=== PATIENT | male | born 1975 | race Hispanic/Latino ===

== ENCOUNTER 2017-06-19 00:50 | Emergency (ER) | payer MEDICAID ==
[2017-06-19 00:54] VITALS: BP 129/86; PULSE 70; RESP 18; TEMP 98; O2SAT 97; BMI 25.1
--- NOTE | 2017-06-19 00:58 | ED PDOC ---
Arrival/HPI - General Time Seen by Provider: 06/19/17 00:53 Historian: Patient - History of Present Illness Narrative History of Present Illness (Text): 06/19/17 00:58 Chepe Davis is a 42 year old male, whose past medical history includes IVDA and endocarditis, who presents to the Emergency department complaining of chest pain. Patient states he has began experiencing right-sided chest pain with associated shortness of breath. Patient notes he [place] 3 [place] [facility] [place] Patient denies any fever, chills, nausea, vomiting, diarrhea, urinary symptoms, back pain, neck pain, headache, dizziness , or any other complaints. Symptom Onset: Gradual Symptom Course: Unchanged Activities at Onset: Light Context: Home Past Medical History - Provider Review Nursing Documentation Reviewed: Yes Family/Social History - Physician Review Nursing Documentation Reviewed: Yes Family/Social History: Unknown Family HX Allergies/Home Meds Allergies/Adverse Reactions: Allergies No Known Allergies Allergy (Verified 06/19/17 00:54) Home Medications: Home Meds Medication Instructions Recorded Confirmed Amoxicillin [Amoxil 250 mg Cap] 250 mg PO DAILY 06/19/17 06/19/17 Cholecalciferol [Vitamin D 1000 IU] 0 unit PO DAILY 06/19/17 06/19/17 Folic Acid [FA-8] 0 mcg PO DAILY 06/19/17 06/19/17 Review of Systems - Physician Review All systems were reviewed & negative as marked: Yes - Review of Systems Constitutional: Normal. absent: Fevers Eyes: Normal ENT: Normal Respiratory: SOB. absent: Cough Cardiovascular: Chest Pain Gastrointestinal: Normal. absent: Abdominal Pain, Diarrhea, Nausea, Vomiting Genitourinary Male: Normal. absent: Dysuria, Frequency, Hematuria, Urinary Output Changes Musculoskeletal: Normal. absent: Back Pain, Neck Pain Skin: Normal. absent: Rash Neurological: Normal. absent: Headache, Dizziness Endocrine: Normal Hemo/Lymphatic: Normal Psychiatric: Normal Physical Exam Vital Signs Reviewed: Yes Vital Signs Temp Pulse Resp BP Pulse Ox 06/19/17 00:57 98.0 F 70 18 129/86 97 06/19/17 00:53 98.0 F 70 18 129/86 97 Temperature: Afebrile Blood Pressure: Normal Pulse: Regular Respiratory Rate: Normal Appearance: Positive for: Well-Appearing, Non-Toxic, Comfortable Pain Distress: None Mental Status: Positive for: Alert and Oriented X 3 - Systems Exam Head: Present: Atraumatic, Normocephalic Pupils: Present: PERRL Extroacular Muscles: Present: EOMI Conjunctiva: Present: Normal Mouth: Present: Moist Mucous Membranes Neck: Present: Normal Range of Motion Respiratory/Chest: Present: Clear to Auscultation, Good Air Exchange. No: Respiratory Distress, Accessory Muscle Use Cardiovascular: Present: Regular Rate and Rhythm, Normal S1, S2. No: Murmurs Abdomen: Present: Normal Bowel Sounds. No: Tenderness, Distention, Peritoneal Signs Back: Present: Normal Inspection Upper Extremity: Present: Normal Inspection. No: Cyanosis, Edema Lower Extremity: Present: Normal Inspection. No: Edema Neurological: Present: GCS=15, CN II-XII Intact, Speech Normal Skin: Present: Warm, Dry, Normal Color. No: Rashes Psychiatric: Present: Alert, Oriented x 3, Normal Insight, Normal Concentration Medical Decision Making ED Course and Treatment: 06/19/17 00:58 Impression: 42 year old male complaining of right-sided chest pain and shortness of breath tonight. Plan: -- EKG -- CXR -- Labs, BNP, cardiac enzymes -- Reassess and disposition Progress Notes: 06/19/17 01:15 Informed by staff, pt left Emergency room prior to complete of treatment/ evaluation. - Scribe Statement The provider has reviewed the documentation as recorded by the Scribe Bethany Erwin All medical record entries made by the Scribe were at my direction and personally dictated by me. I have reviewed the chart and agree that the record accurately reflects my personal performance of the history, physical exam, medical decision making, and the department course for this patient. I have also personally directed, reviewed, and agree with the discharge instructions and disposition. Disposition/Present on Arrival - Present on Arrival Any Indicators Present on Arrival: No - Disposition Have Diagnosis and Disposition been Completed?: Yes Diagnosis: Chest pain Disposition: LEFT W/O TREATMENT - ER ONLY Disposition Time: 01:15 Patient Problems: Current Active Problems Problem Status Onset Chest pain Acute Condition: UNKNOWN Discharge Instructions (ExitCare): Chest Pain (ED) Referrals: Max Almendarez MD [Primary Care Provider] - Follow up with primary
[2017-06-19] MEDS ORDERED: Albuterol-Ipratrop 3 mg / 0.5 (3 ml) UD ONE (07:29)
== END 2017-06-19 03:49 | disposition left against medical advice (07) ==
LOC: ED 00:50
DX: R07.9 Chest pain, unspecified (principal)

== ENCOUNTER 2017-07-01 19:49 | Observation (INO) | payer MEDICAID ==
[2017-07-01 19:49] VITALS: BMI 25.1
[2017-07-01 20:31] LABS: CALCIUM 10.1 mg/dL (8.4-10.5); GFR AFRICAN-AMERICAN > 60; GLUCOSE,RANDOM 95 mg/dL (70-110); TOTAL PROTEIN 9.2 g/dL (5.8-8.3)
[2017-07-01 20:42] LABS: TROPONIN I < 0.01 ng/mL
[2017-07-01 20:50] LABS: ALB/GLOB RATIO 0.9 (1.1-1.8); ALKALINE PHOSPHATASE 70 U/L (38-126); ALT/SGPT 69 U/L (7-56); AST/SGOT 64 U/L (17-59); BLOOD UREA NITROGEN 13 mg/dL (7-21); CARBON DIOXIDE 29 mmol/L (21-33); CHLORIDE 106 mmol/L (98-107); MAGNESIUM 1.8 mg/dL (1.7-2.2); POTASSIUM 4.1 mmol/L (3.6-5.0); SODIUM 141 mmol/L (132-148)
[2017-07-01 20:52] LABS: BASO # 0.05 K/mm3 (0.0-2.0); BASO % 0.5 % (0.0-3.0); EOS # 0.1 (0.0-0.7); EOS % 0.6 % (1.5-5.0); GRAN # 5.67 (1.4-6.5); GRAN % 60.3 % (50.0-68.0); LYMPH % 31.7 % (22.0-35.0); MEAN CELL VOLUME 86.3 fl (80.0-105.0); MEAN CORPUSCULAR HEMOGLOBIN 28.7 pg (25.0-35.0); MEAN CORPUSCULAR HGB CONC 33.3 g/dl (31.0-37.0); MEAN PLATELET VOLUME 8.7 fl (7.0-11.0); MONO # 0.7 (0.1-0.6); MONO % 6.9 % (1.0-6.0); RED CELL DISTRIBUTION WIDTH 14.1 % (11.5-14.5); WHITE BLOOD COUNT 9.4 10^3/ul (4.5-11.0)
[2017-07-01 20:52] LABS: PH,URINE 7.5 (4.7-8.0); URINE BILIRUBIN NEGATIVE (NEGATIVE); URINE BLOOD NEGATIVE (NEGATIVE); URINE GLUCOSE (UA) NEGATIVE (NEGATIVE); URINE KETONE NEGATIVE (NEGATIVE); URINE LEUKOCYTE ESTERASE NEGATIVE Leu/uL (NEGATIVE); URINE PROTEIN TRACE mg/dL (<30 mg/dL); URINE UROBILINOGEN 0.2 E.U./dL (<1 E.U./dL)
[2017-07-01 20:54] LABS: URINE APPEARANCE CLEAR (CLEAR); URINE COLOR YELLOW (YELLOW)
[2017-07-01 20:58] LABS: INR 1.1 (0.93-1.08); PARTIAL THROMBOPLASTIN TIME 26.5 Seconds (25.1-36.5)
[2017-07-01] MEDS ORDERED: Lactated Ringer's 1,000 ML IV SCH (21:15)
--- NOTE | 2017-07-01 21:16 | ED PDOC ---
Arrival/HPI - General Chief Complaint: Shortness Of Breath Time Seen by Provider: 07/01/17 20:07 Historian: Patient - History of Present Illness Narrative History of Present Illness (Text): you admitted to intravenous drug use with heroin and endocarditis and were treated in the ED today for difficulty breathing, generalized chest pain with right upper back pain with dry cough otherwise without any fall/injury/neck pain /fever/nausea/vomiting/headache/dizziness/abdomen pain/numbness/tingling/loss of limb function/pain with urination/travel/prior blood clots/prior cancer history/thoughts to harm yourself or others or hallucinations. 07/01/17 21:13 07/01/17 21:16 Time/Duration: 1 week Past Medical History - Provider Review Nursing Documentation Reviewed: Yes - Travel History Have you recently traveled outside [place] w/in the past 3 mons?: No - Cardiac Hx Cardiac Disorders: Yes Other/Comment: endocardities - Pulmonary Hx Respiratory Disorders: No - Neurological Hx Neurological Disorder: No - HEENT Hx HEENT Disorder: No - Renal Hx Renal Disorder: No - Endocrine/Metabolic Hx Endocrine Disorders: No - Hematological/Oncological Hx Blood Disorders: No - Integumentary Hx Dermatological Disorder: No - Musculoskeletal/Rheumatological Hx Musculoskeletal Disorders: No - Gastrointestinal Hx Gastrointestinal Disorders: No - Genitourinary/Gynecological Hx Genitourinary Disorders: No - Psychiatric Hx Psychophysiologic Disorder: No Hx Substance Use: Yes (heroin) Family/Social History - Physician Review Nursing Documentation Reviewed: Yes Family/Social History: No Known Family HX Smoking Status: Current Some Days Smoker Hx Alcohol Use: Yes Hx Substance Use: Yes (heroin) Allergies/Home Meds Allergies/Adverse Reactions: Allergies No Known Allergies Allergy (Verified 06/19/17 00:54) Home Medications: Home Meds Medication Instructions Recorded Confirmed Amoxicillin [Amoxil 250 mg Cap] 250 mg PO DAILY 06/19/17 06/19/17 Cholecalciferol [Vitamin D 1000 IU] 0 unit PO DAILY 06/19/17 06/19/17 Folic Acid [FA-8] 0 mcg PO DAILY 06/19/17 06/19/17 Review of Systems - Review of Systems Constitutional: Normal Eyes: Normal ENT: Normal Respiratory: SOB Cardiovascular: Chest Pain Gastrointestinal: Normal Genitourinary Male: Normal Musculoskeletal: Back Pain Skin: Normal Neurological: Normal Endocrine: Normal Hemo/Lymphatic: Normal Psychiatric: Normal Physical Exam Vital Signs Reviewed: Yes Vital Signs Temp Pulse Resp BP Pulse Ox 07/01/17 21:40 98.3 F 68 17 145/79 98 07/01/17 20:00 18 98 07/01/17 19:56 98 F 81 18 145/79 100 Temperature: Afebrile Blood Pressure: Hypertensive Pulse: Regular Respiratory Rate: Normal Appearance: Positive for: Well-Appearing, Non-Toxic, Comfortable Pain Distress: None Mental Status: Positive for: Alert and Oriented X 3 - Systems Exam Head: Present: Atraumatic, Normocephalic Pupils: Present: PERRL Extroacular Muscles: Present: EOMI Conjunctiva: Present: Normal Ears: Present: Normal Mouth: Present: Moist Mucous Membranes Pharnyx: Present: Normal Nose (External): Present: Atraumatic Nose (Internal): Present: Normal Inspection Neck: Present: Normal Range of Motion Respiratory/Chest: Present: Clear to Auscultation, Good Air Exchange Cardiovascular: Present: Regular Rate and Rhythm Rectal: No: Occult Blood, Rectal Tenderness, Gross Blood, Melena, Hemorrhoids, Normal Rectal Tone, Fissures, Nodule/Mass/Lesions, Other Back: Present: Normal Inspection, Other (no spinal or paraspinal c-t-l spine and wo erythema/fluctuance/crepitus.) Upper Extremity: Present: Normal Inspection Lower Extremity: Present: Normal Inspection Neurological: Present: GCS=15, CN II-XII Intact, Speech Normal, Motor Func Grossly Intact Skin: Present: Warm, Normal Color Psychiatric: Present: Alert, Oriented x 3, Normal Insight, Normal Concentration. No: Normal Affect (denies suicidal/homicidal/hallucinations), Normal Mood, Anxious, Agitated, Depressed Mood, Suicidal Ideation, Homicidal Ideation, Delusional, Hallucinations, Intoxicated, Lethargic, Other Medical Decision Making ED Course and Treatment: 07/01/17 21:16 you admitted to intravenous drug use with heroin and endocarditis and were treated in the ED today for difficulty breathing, generalized chest pain with right upper back pain with dry cough otherwise without any fall/injury/neck pain /fever/nausea/vomiting/headache/dizziness/abdomen pain/numbness/tingling/loss of limb function/pain with urination/travel/prior blood clots/prior cancer history/thoughts to harm yourself or others or hallucinations. You were otherwise breathing easily, good strength/sensation, walking easily, clear lungs , no abdomen tenderness, no rashes or punctate hand lesions, no fever temp 98.1 , stable heart rate 81, stable breathing rate 18, excellent oxygen level 100% room air, elevated blood pressure 145/79 which we recommend repeat in 2-3 days primary care office to determine further treatment, trop negative, counselled to stop using drugs and will admit for chest pain rule out. after tox screen obtained pt admitted to cocaine use in the past 1-2 weeks. 07/01/17 21:19 07/01/17 23:21 07/01/17 23:55 d/w [facility] resident. will admit to dr. mott. for acs rule out. - Lab Interpretations Lab Results: 07/01/17 20:14 07/01/17 20:14 Lab Results 07/01/17 20:30: Urine Opiates Screen Positive H, Urine Methadone Screen Negative , Ur Barbiturates Screen Negative, Ur Phencyclidine Scrn Negative, Ur Amphetamines Screen Negative, U Benzodiazepines Scrn Negative, U Oth Cocaine Metabols Positive H, U Cannabinoids Screen Negative 07/01/17 20:30: Urine Color Yellow, Urine Appearance Clear, Urine pH 7.5, Ur Specific [place] 1.015, Urine Protein Trace H, Urine Glucose (UA) Negative, Urine Ketones Negative, Urine Blood Negative, Urine Nitrate Negative, Urine Bilirubin Negative, Urine Urobilinogen 0.2, Ur Leukocyte Esterase Negative, Urine RBC 1 - 3, Urine WBC 0 - 2, Ur Epithelial Cells 0 - 2 07/01/17 20:14: Sodium 141, Potassium 4.1, Chloride 106, Carbon Dioxide 29, Anion Gap 11, BUN 13, Creatinine 0.8, Est GFR ( Amer) > 60, Est GFR (Non- Af Amer) > 60, Random Glucose 95, Calcium 10.1, Magnesium 1.8, Total Bilirubin 1.0, AST 64 H, ALT 69 H, Alkaline Phosphatase 70, Lactate Dehydrogenase 528, Total Creatine Kinase 53, Troponin I < 0.01, NT-Pro-B Natriuret Pep 81.1, Total Protein 9.2 H, Albumin 4.4, Globulin 4.8, Albumin/Globulin Ratio 0.9 L 07/01/17 20:14: PT 12.0, INR 1.10 H, APTT 26.5, D-Dimer, Quantitative 462 H 07/01/17 20:14: WBC 9.4, RBC 5.33, Hgb 15.3, Hct 46.0, MCV 86.3, MCH 28.7, MCHC 33.3, RDW 14.1, Plt Count 452 H, MPV 8.7, Gran % 60.3, Lymph % (Auto) 31.7, [place] % (Auto) 6.9 H, Eos % (Auto) 0.6 L, Baso % (Auto) 0.5, Gran # 5.67, Lymph # 3.0, [place] # 0.7 H, Eos # 0.1, Baso # 0.05 I have reviewed the lab results: Yes - RAD Interpretation Narrative RAD Interpretations (Text): CT chest no pe. no consolidation. no effusion. +left lung nodule. 07/01/17 23:20 Radiology Orders: 07/01/17 21:11 ANGIO CHEST PE PROTOCOL [CT] Stat Mailing Clerk: Radiologist - EKG Interpretation Interpreted by ED Physician: Yes (NSR, flipped t waves avr, ) - Medication Orders Current Medication Orders: Lactated Ringer's (Lactated Ringer's) 1,000 mls @ 100 mls/hr IV .Q10H [facility] Last Admin: 07/01/17 21:22 Dose: 100 mls/hr eMAR Start Stop Document 07/01/17 21:22 IT (Rec: 07/01/17 21:22 IT [id number]) Intravenous Solution Start Date 07/01/17 Start Time 21:22 Discontinued Medications Aspirin (Aspirin) 325 mg PO STAT STA Stop: 07/01/17 20:12 Last Admin: 07/01/17 20:23 Dose: 325 mg Disposition/Present on Arrival - Present on Arrival Any Indicators Present on Arrival: No History of DVT/PE: Yes History of Uncontrolled Diabetes: Yes Urinary Catheter: Yes History of Decub. Ulcer: No History Surgical Site Infection Following: None - Disposition Have Diagnosis and Disposition been Completed?: Yes Diagnosis: Chest pain Disposition: HOSPITALIZED Disposition Time: 23:56 Patient Plan: Admission, Telemetry Condition: IMPROVED Discharge Instructions (ExitCare): Chest Pain (ED) Forms: [employer] ([employer])
[2017-07-01 21:17] LABS: URINE EPITHELIAL CELLS 0 - 2 /hpf (0-5); URINE WBC 0 - 2 /hpf (0-6)
[2017-07-01] MEDS ORDERED: Iodixanol 320 MG/ML 100 ML BOTTLE IV ONE (21:28)
--- NOTE | 2017-07-01 22:39 | CT ---
EXAM: CT Angiography Chest With Intravenous Contrast CLINICAL HISTORY: 42 years old, male; Pain and signs and symptoms; Shortness of breath; Chest pain; Right-sided chest pain; Additional info: 42yom, ivda, chest pain. Eval for pe. TECHNIQUE: Axial computed tomographic angiography images of the chest with intravenous contrast using pulmonary embolism protocol. All CT scans at this facility use one or more dose reduction techniques, viz.: automated exposure control; ma/kV adjustment per patient size (including targeted exams where dose is matched to indication; i.e. head); or iterative reconstruction technique. MIP reconstructed images were created and reviewed. Coronal and sagittal reformatted images were created and reviewed. CONTRAST: 100 mL of VISIPAQUE 320 administered intravenously. COMPARISON: No relevant prior studies available. FINDINGS: Limitations: Motion artifact - mild to moderate. Pulmonary arteries: No pulmonary embolism. Aorta: No aneurysm. No dissection. Lungs: Minimal peripheral atelectasis/scarring. No consolidation. 0.7 cm nodule vs focal scarring left upper lobe. Pleural space: No significant effusion. No pneumothorax. Heart: No cardiomegaly. No significant pericardial effusion. Bones/joints: No acute fracture. Soft tissues: Unremarkable. Lymph nodes: No pathologically enlarged lymph nodes. IMPRESSION: 1. No definite CT evidence of pulmonary embolism. 2. Pulmonary nodule. For low-risk patients recommend follow-up chest CT at 6-12 months. If unchanged consider an additional follow-up CT at 18-24 months. For high-risk patients (smoking history or other known risk factors) initial follow-up chest CT at 6-12 months and if unchanged, 18-24 months.No definite pulmonary embolism. 3. Incidental/non-acute findings are described above.
[2017-07-02] MEDS ORDERED: Multivitamin (MVI) 10 ML, Thiamine 100 MG, Folic Acid 1 MG in Sodium Chloride 0.9% 1,00... IV ONE (01:18)
--- NOTE | 2017-07-02 01:52 | CP.PCM.HP ---
<Yanna Mariee - Last Filed: 07/02/17 01:33> History of Present Illness - History of Present Illness History of Present Illness: Yanna Mariee DO PGY1 - Internal Medicine H&P CC: Chest discomfort and shortness of breath HPI: 42 yo M with PMH of polysubstance abuse, IVDU, hepatitis C, and endocarditis, [place] 2.[place] [facility] [place] [facility] complaining of chest discomfort and shortness of breath for the past 3 days. 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 He denies diaphoresis, nausea, palpitations. He does admit to some shortness of breath, worsened with activity. Patient also admits to frequent IVDU and polysubstance use including heroin, cocaine, and alcohol; last used both approximately 3 days ago, and last drank yesterday. 12 point ROS was obtained and was negative except as above PMH: Endocarditis 2.5 months ago, [place] [facility], hepatitis C PSH: Denies Soc: Smokes 1 PPD; Drinks 40oz beer daily; uses IV heroin and IV cocaine, last used 3 days ago FHx: Denies All: NKDA Present on Admission - Present on Admission Any Indicators Present on Admission: No Past Patient History - Past Social History Smoking Status: Current Some Days Smoker - CARDIAC Hx Cardiac Disorders: Yes Other/Comment: endocardities - PULMONARY Hx Respiratory Disorders: No - NEUROLOGICAL Hx Neurological Disorder: No - HEENT Hx HEENT Problems: No - RENAL Hx Chronic Kidney Disease: No - ENDOCRINE/METABOLIC Hx Endocrine Disorders: No - HEMATOLOGICAL/ONCOLOGICAL Hx Blood Disorders: No - INTEGUMENTARY Hx Dermatological Problems: No - MUSCULOSKELETAL/RHEUMATOLOGICAL Hx Falls: No - GASTROINTESTINAL Hx Gastrointestinal Disorders: No - GENITOURINARY/GYNECOLOGICAL Hx Genitourinary Disorders: No - PSYCHIATRIC Hx Psychophysiologic Disorder: No Hx Substance Use: No - SURGICAL HISTORY Hx Surgeries: No Meds Allergies/Adverse Reactions: Allergies Allergy/AdvReac Type Severity Reaction Status Date / Time No Known Allergies Allergy Verified 07/02/17 00:06 Physical Exam - Constitutional Appears: Non-toxic, No Acute Distress, Unkempt - Head Exam Head Exam: ATRAUMATIC, NORMOCEPHALIC - Eye Exam Eye Exam: EOMI, Normal appearance, PERRL. absent: Scleral icterus Pupil Exam: absent: Miosis, Mydriatic - ENT Exam ENT Exam: Mucous Membranes Moist - Neck Exam Neck exam: Positive for: Normal Inspection - Respiratory Exam Respiratory Exam: Clear to Auscultation Bilateral, NORMAL BREATHING PATTERN - Cardiovascular Exam Cardiovascular Exam: RRR, +S1, +S2, +S4. absent: Bradycardia, Tachycardia, JVD - GI/Abdominal Exam GI & Abdominal Exam: Normal Bowel Sounds, Soft. absent: Distended, Firm, Guarding, Organomegaly, Rebound, Rigid, Tenderness - Extremities Exam Extremities exam: Negative for: calf tenderness, pedal edema Additional comments: No splinter hemorrhages, janeway lesions, osler nodes, clubbing, cyanosis, or edema - Neurological Exam Neurological exam: Alert, CN II-XII Intact, Oriented x3 - Psychiatric Exam Psychiatric exam: Normal Affect, Normal Mood - Skin Skin Exam: Dry, Normal Color Additional comments: Multiple track dior Multiple excoriations on face and bilateral arms - Additional Findings Additional findings: Patient sitting comfortably in bed, eating pudding and a cookie, speaking calmly and in complete sentences Results - Vital Signs Recent Vital Signs: Last Vital Signs Temp 97.8 F 07/02/17 01:23 Pulse 72 07/02/17 01:23 Resp 17 07/02/17 01:23 BP 120/82 07/02/17 01:23 Pulse Ox 98 07/02/17 01:23 - Labs Result Diagrams: 07/01/17 20:14 07/01/17 20:14 Assessment & Plan - Assessment and Plan (Free Text) Assessment: 42 yo M with PMH of polysubstance abuse, IVDU, hepatitis C, and endocarditis, treated 2.5 months ago [place] [facility] complaining of chest discomfort and shortness of breath for the past 3 days Plan Chest discomfort, r/o ACS - Patient complaining mostly of right upper back pain, pleuritic and related to right arm activity, more likely musculoskeletal in nature, 2/2 to occupation - Patient also has history of cocaine abuse; may be 2/2 vasospasm 2/2 cocaine; avoid BB - Patient also has history of endocarditis 2/2 IVDU; echo ordered, as below - Initial troponin negative; initial EKG shows NSR, pending official read - Continue to trend troponins; repeat EKG in AM - Ordered ESR and CRP to rule in/out costochondritis and endocarditis/ pericarditis - Continue PRN O2 - Ordered Motrin PRN for pain - Cardiology consult requested, appreciate recs h/o Endocarditis - Patient was recently treated for endocarditis 2/2 IVDU [place] [facility]; continues to be an active IVDU - Currently afebrile with no leukocytosis; though presents complaining of chest discomfort and shortness of breath - No signs of septic emboli at this time; no janeway lesions, osler nodes, digital clubbing, petechial rash, subconjunctival hemorrhages, or hematuria - Blood cultures ordered to r/o bacteremia - Echo ordered to r/o vegitation/thrombus and wall motion abnormalities Alcohol abuse - Patient normally drinks 40oz beer daily, last drink yesterday - Ordered alcohol level - Does not appear to be actively withdrawing at this time - Start CIWA protocol - Start banana bag - Ordered PRN ativan for withdrawal symptoms - Seizure precautions h/o IVDU, polysubstance abuse - Patient last used IV heroin and IV cocaine 3 days ago - Ordered PRN ativan for withdrawal symptoms - Ordered PRN clonidine for tics, 2/2 cocaine withdrawal - Ordered HIV screening - Discussed abstinence at length - Ordered social work evaluation Transaminemia - Mild, hepatotoxic pattern - Most likely 2/2 to known history of hepatitis C - Acute hepatitis panel ordered - Continue to monitor GI Ppx: Protonix DVT Ppx: Heparin Patient seen, discussed, and reviewed with attending, Dr. Grace <Lesly GIBSON,Gerry - Last Filed: 07/02/17 14:15> Results - Vital Signs Recent Vital Signs: Last Vital Signs Temp 97.9 F 07/02/17 11:55 Pulse 75 07/02/17 14:00 Resp 18 07/02/17 11:55 BP 128/76 07/02/17 11:55 Pulse Ox 98 07/02/17 11:55 - Labs Result Diagrams: 07/02/17 06:30 07/02/17 06:30 Labs: Laboratory Results - last 24 hr 07/02/17 07/02/17 07/02/17 02:00 06:30 06:30 WBC RBC Hgb Hct MCV MCH MCHC RDW Plt Count MPV Gran % Lymph % (Auto) [place] % (Auto) Eos % (Auto) Baso % (Auto) Gran # Lymph # [place] # Eos # Baso # ESR Sodium Potassium Chloride Carbon Dioxide Anion Gap BUN Creatinine Est GFR ( Amer) Est GFR (Non-Af Amer) Random Glucose Calcium Phosphorus Magnesium Total Bilirubin AST ALT Alkaline Phosphatase Troponin I < 0.01 C-React Prot High Sens 1.41 Total Protein Albumin Globulin Albumin/Globulin Ratio Alcohol, Quantitative Hepatitis A IgM Ab Negative Hep Bs Antigen Negative Hep B Core IgM Ab Negative Hepatitis C Antibody Reactive 07/02/17 07/02/17 07/02/17 06:30 06:30 06:30 WBC 10.2 RBC 4.57 Hgb 12.8 L D Hct 39.1 L MCV 85.6 MCH 28.0 MCHC 32.7 RDW 14.0 Plt Count 383 MPV 8.7 Gran % 59.1 Lymph % (Auto) 30.9 [place] % (Auto) 8.6 H Eos % (Auto) 0.9 L Baso % (Auto) 0.5 Gran # 6.04 Lymph # 3.2 [place] # 0.9 H Eos # 0.1 Baso # 0.05 ESR Sodium 140 Potassium 4.0 Chloride 108 H Carbon Dioxide 24 Anion Gap 11 BUN 15 Creatinine 0.8 Est GFR ( Amer) > 60 Est GFR (Non-Af Amer) > 60 Random Glucose 109 Calcium 9.2 Phosphorus 3.2 Magnesium 1.7 Total Bilirubin 0.4 AST 47 ALT 62 H Alkaline Phosphatase 62 Troponin I < 0.01 C-React Prot High Sens Total Protein 7.3 Albumin 3.5 Globulin 3.9 Albumin/Globulin Ratio 0.9 L Alcohol, Quantitative < 10 Hepatitis A IgM Ab Hep Bs Antigen Hep B Core IgM Ab Hepatitis C Antibody 07/02/17 06:30 WBC RBC Hgb Hct MCV MCH MCHC RDW Plt Count MPV Gran % Lymph % (Auto) [place] % (Auto) Eos % (Auto) Baso % (Auto) Gran # Lymph # [place] # Eos # Baso # ESR 52 H Sodium Potassium Chloride Carbon Dioxide Anion Gap BUN Creatinine Est GFR ( Amer) Est GFR (Non-Af Amer) Random Glucose Calcium Phosphorus Magnesium Total Bilirubin AST ALT Alkaline Phosphatase Troponin I C-React Prot High Sens Total Protein Albumin Globulin Albumin/Globulin Ratio Alcohol, Quantitative Hepatitis A IgM Ab Hep Bs Antigen Hep B Core IgM Ab Hepatitis C Antibody Attending/Attestation - Attestation I have personally seen and examined this patient.: Yes I have fully participated in the care of the patient.: Yes I have reviewed all pertinent clinical information: Yes Notes (Text): -I agree with the above H&P completed by the resident physician, with the following additions and/or changes: -The patient is a 42 year old man with a history of polysubstance abuse, IVDU, hepatitis C, and endocarditis (s/p treatment with IV antibiotics 3 months ago [place] [facility] now being admitted for chest pain (r/o ACS). Of note, the patient's urine toxicology is positive for both cocaine and opiates. He is afebrile. We will check serial trop's and EKG's and order a 2D-echo. Also, cardiology has been consulted. PRN Ativan for withdrawal symptoms and banana bag for IVF's.
[2017-07-02] MEDS ORDERED: Pantoprazole 40 mg EC Tab PO SCH (06:00)
[2017-07-02 06:26] VITALS: RESP 18
[2017-07-02 07:16] LABS: BASO # 0.05 K/mm3 (0.0-2.0); BASO % 0.5 % (0.0-3.0); EOS # 0.1 (0.0-0.7); EOS % 0.9 % (1.5-5.0); GRAN # 6.04 (1.4-6.5); GRAN % 59.1 % (50.0-68.0); HEMATOCRIT 39.1 % (42.0-52.0); LYMPH # 3.2 (1.2-3.4); LYMPH % 30.9 % (22.0-35.0); MEAN CELL VOLUME 85.6 fl (80.0-105.0); MEAN CORPUSCULAR HGB CONC 32.7 g/dl (31.0-37.0); MEAN PLATELET VOLUME 8.7 fl (7.0-11.0); MONO # 0.9 (0.1-0.6); MONO % 8.6 % (1.0-6.0); WHITE BLOOD COUNT 10.2 10^3/ul (4.5-11.0)
[2017-07-02 07:27] LABS: TROPONIN I < 0.01 ng/mL
[2017-07-02 07:51] LABS: ALB/GLOB RATIO 0.9 (1.1-1.8); ALKALINE PHOSPHATASE 62 U/L (38-126); ALT/SGPT 62 U/L (7-56); AST/SGOT 47 U/L (17-59); BILIRUBIN,TOTAL 0.4 mg/dL (0.2-1.3); BLOOD UREA NITROGEN 15 mg/dL (7-21); CALCIUM 9.2 mg/dL (8.4-10.5); CARBON DIOXIDE 24 mmol/L (21-33); CHLORIDE 108 mmol/L (98-107); GFR AFRICAN-AMERICAN > 60; GLUCOSE,RANDOM 109 mg/dL (70-110); MAGNESIUM 1.7 mg/dL (1.7-2.2); PHOSPHOROUS 3.2 mg/dL (2.5-4.5); SODIUM 140 mmol/L (132-148); TOTAL PROTEIN 7.3 g/dL (5.8-8.3)
--- NOTE | 2017-07-02 10:22 | CARD ---
APPROVED REPORT EKG Measurement Heart [id number] <Conclusion> Normal sinus rhythm LVH by voltage Prolonged QTc
[2017-07-02 11:59] VITALS: BP 128/76; TEMP 97.9; O2SAT 98
--- NOTE | 2017-07-02 12:44 | CARD ---
APPROVED REPORT EKG Measurement Heart [id number] <Conclusion> Normal sinus rhythm with sinus arrhythmia. Normal ECG
[2017-07-02 14:50] VITALS: PULSE 75
--- NOTE | 2017-07-02 15:09 | CON ---
DATE: CARDIOLOGY CONSULTATION HISTORY OF PRESENT ILLNESS: The patient is a 42-year-old male who has a history of heroin abuse and history of endocarditis presented to the emergency room because of fever, difficulty breathing, generalized chest pain, and upper back pain. At this time, the patient is under his cover and willing to give more detailed history to me, but he did allow me to examine him. According to the emergency room evaluation, the patient did report dry cough. He denies any headaches, dizziness, or abdominal pain. MEDICATIONS: Clonidine 0.1 mg q.12 hours p.r.n., heparin 5000 units subcutaneous q.8 hours, ibuprofen 600 mg p.o. q.6 hours, Protonix 40 mg p.o. daily, and Lactate Ringers 800 mL an hour. SOCIAL HISTORY: The patient is a smoker and drinker. PHYSICAL EXAMINATION: GENERAL: The patient is a middle-aged male, who does not appear to be in any distress at this time. VITAL SIGNS: Blood pressure 128/76, heart rate 114, temperature 97.9, and respirations 18. HEENT: Normocephalic. CHEST: Bilateral rhonchi. HEART: S1 and S2 regular. ABDOMEN: Soft. EXTREMITIES: No edema. LABORATORY DATA: Hemoglobin and hematocrit today is 12.8 and 39.1 with a drop of nearly 2.5 g of hemoglobin, but this could be related to hydration. White count and platelet count today are within normal limits. INR is 1.1. D-dimer is 462. SMA-7, sodium 140, potassium 4, chloride 108, CO2 24, glucose 109, BUN 15, and creatinine 0.8. Three sets of troponins are negative. Urine drug screen is positive for cocaine and opioids. Liver profile is negative, however, hepatitis C antibody is still pending. EKG revealed normal sinus rhythm. ASSESSMENT: 1. Status post cocaine and opioid abuse. 2. History of acute endocarditis. 3. Mild anemia. RECOMMENDATIONS: Continue current clonidine 0.1 mg twice a day, heparin 5000 units q.8 hours. I will review the echocardiograph study that was performed today. Obtain 2 sets of blood cultures. Favian Christopher MD [facility] # [id number]
--- NOTE | 2017-07-02 23:33 | CP.PCM.DIS ---
Provider - Provider Date of Admission: 07/02/17 00:03 Attending physician: Bing Rivera MD [facility] Course - Lab Results Lab Results: Most Recent Lab Values WBC 10.2 10^3/ul (4.5-11.0) 07/02/17 06:30 RBC 4.57 10^6/uL (3.5-6.1) 07/02/17 06:30 Hgb 12.8 g/dL (14.0-18.0) L D 07/02/17 06:30 Hct 39.1 % (42.0-52.0) L 07/02/17 06:30 MCV 85.6 fl (80.0-105.0) 07/02/17 06:30 MCH 28.0 pg (25.0-35.0) 07/02/17 06:30 MCHC 32.7 g/dl (31.0-37.0) 07/02/17 06:30 RDW 14.0 % (11.5-14.5) 07/02/17 06:30 Plt Count 383 10^3/uL (120.0-450.0) 07/02/17 06:30 MPV 8.7 fl (7.0-11.0) 07/02/17 06:30 Gran % 59.1 % (50.0-68.0) 07/02/17 06:30 Lymph % (Auto) 30.9 % (22.0-35.0) 07/02/17 06:30 Shoshone % (Auto) 8.6 % (1.0-6.0) H 07/02/17 06:30 Eos % (Auto) 0.9 % (1.5-5.0) L 07/02/17 06:30 Baso % (Auto) 0.5 % (0.0-3.0) 07/02/17 06:30 Gran # 6.04 (1.4-6.5) 07/02/17 06:30 Lymph # 3.2 (1.2-3.4) 07/02/17 06:30 Shoshone # 0.9 (0.1-0.6) H 07/02/17 06:30 Eos # 0.1 (0.0-0.7) 07/02/17 06:30 Baso # 0.05 K/mm3 (0.0-2.0) 07/02/17 06:30 ESR 52 mm/hr (0.0-15.0) H 07/02/17 06:30 PT 12.0 SECONDS (9.4-12.5) 07/01/17 20:14 INR 1.10 (0.93-1.08) H 07/01/17 20:14 APTT 26.5 Seconds (25.1-36.5) 07/01/17 20:14 D-Dimer, Quantitative 462 ng/mL (0-243) H 07/01/17 20:14 Sodium 140 mmol/L (132-148) 07/02/17 06:30 Potassium 4.0 mmol/L (3.6-5.0) 07/02/17 06:30 Chloride 108 mmol/L (98-107) H 07/02/17 06:30 Carbon Dioxide 24 mmol/L (21-33) 07/02/17 06:30 Anion Gap 11 (10-20) 07/02/17 06:30 BUN 15 mg/dL (7-21) 07/02/17 06:30 Creatinine 0.8 mg/dl (0.8-1.5) 07/02/17 06:30 Est GFR ( Amer) > 60 07/02/17 06:30 Est GFR (Non-Af Amer) > 60 07/02/17 06:30 Random Glucose 109 mg/dL (70-110) 07/02/17 06:30 Calcium 9.2 mg/dL (8.4-10.5) 07/02/17 06:30 Phosphorus 3.2 mg/dL (2.5-4.5) 07/02/17 06:30 Magnesium 1.7 mg/dL (1.7-2.2) 07/02/17 06:30 Total Bilirubin 0.4 mg/dL (0.2-1.3) 07/02/17 06:30 AST 47 U/L (17-59) 07/02/17 06:30 ALT 62 U/L (7-56) H 07/02/17 06:30 Alkaline Phosphatase 62 U/L (38-126) 07/02/17 06:30 Lactate Dehydrogenase 528 U/L (333-699) 07/01/17 20:14 Total Creatine Kinase 53 U/L (35-230) 07/01/17 20:14 Troponin I < 0.01 ng/mL 07/02/17 06:30 C-React Prot High Sens 1.41 mg/L (1.00-3.00) 07/02/17 06:30 NT-Pro-B Natriuret Pep 81.1 pg/mL (0-450) 07/01/17 20:14 Total Protein 7.3 g/dL (5.8-8.3) 07/02/17 06:30 Albumin 3.5 g/dL (3.0-4.8) 07/02/17 06:30 Globulin 3.9 gm/dL 07/02/17 06:30 Albumin/Globulin Ratio 0.9 (1.1-1.8) L 07/02/17 06:30 Urine Color Yellow (YELLOW) 07/01/17 20:30 Urine Appearance Clear (CLEAR) 07/01/17 20:30 Urine pH 7.5 (4.7-8.0) 07/01/17 20:30 Ur Specific [place] 1.015 (1.005-1.035) 07/01/17 20:30 Urine Protein Trace mg/dL (<30 mg/dL) H 07/01/17 20:30 Urine Glucose (UA) Negative mg/dL (NEGATIVE) 07/01/17 20:30 Urine Ketones Negative mg/dL (NEGATIVE) 07/01/17 20:30 Urine Blood Negative (NEGATIVE) 07/01/17 20:30 Urine Nitrate Negative (NEGATIVE) 07/01/17 20:30 Urine Bilirubin Negative (NEGATIVE) 07/01/17 20:30 Urine Urobilinogen 0.2 E.U./dL (<1 E.U./dL) 07/01/17 20:30 Ur Leukocyte Esterase Negative Alex/uL (NEGATIVE) 07/01/17 20:30 Urine RBC 1 - 3 /hpf (0-2) 07/01/17 20:30 Urine WBC 0 - 2 /hpf (0-6) 07/01/17 20:30 Ur Epithelial Cells 0 - 2 /hpf (0-5) 07/01/17 20:30 Urine Opiates Screen Positive (NEGATIVE) H 07/01/17 20:30 Urine Methadone Screen Negative (NEGATIVE) 07/01/17 20:30 Ur Barbiturates Screen Negative (NEGATIVE) 07/01/17 20:30 Ur Phencyclidine Scrn Negative (NEGATIVE) 07/01/17 20:30 Ur Amphetamines Screen Negative (NEGATIVE) 07/01/17 20:30 U Benzodiazepines Scrn Negative (NEGATIVE) 07/01/17 20:30 U Oth Cocaine Metabols Positive (NEGATIVE) H 07/01/17 20:30 U Cannabinoids Screen Negative (NEGATIVE) 07/01/17 20:30 Alcohol, Quantitative < 10 mg/dL (0-10) 07/02/17 06:30 Hepatitis A IgM Ab Negative (NEGATIVE) 07/02/17 06:30 Hep Bs Antigen Negative (NEGATIVE) 07/02/17 06:30 Hep B Core IgM Ab Negative (NEGATIVE) 07/02/17 06:30 Hepatitis C Antibody Reactive (NEGATIVE) 07/02/17 06:30 Discharge Exam - Head Exam Head Exam: ATRAUMATIC, NORMOCEPHALIC Discharge Plan - Follow Up Plan Condition: IMPROVED Disposition: HOME/ ROUTINE Instructions: Chest Pain (DC), Abuse of Alcohol (DC) Additional Instructions: Mr. Davis thank you for letting us take care of you today. The medical care you received today was directed at your acute symptoms. Return to the Emergency Department if your symptoms worsen, do not improve, or if you have any other problems. 1. Discussion with social work took place regarding housing, please choose one of the locations provided so you can have housing.
--- NOTE | 2017-07-03 08:45 | CARD ---
APPROVED REPORT EXAM: Two-dimensional and M-mode echocardiogram with Doppler and color Doppler. Other Information Quality : GoodRhythm : INDICATION Infection:Rule out subacute bacterial endocarditis Chest Pain 2D DIMENSIONS Left Atrium (2D)3.4 (1.6-4.0cm)IVSd1.0 (0.7-1.1cm) LVDd4.8 (3.9-5.9cm)PWd1.1 (0.7-1.1cm) LVDs3.1 (2.5-4.0cm)FS (%) 35.2 % LVEF (%)64.0 (>50%) M-Mode DIMENSIONS Aortic Root3.20 (2.2-3.7cm)Aortic Cusp Exc.2.00 (1.5-2.0cm) Aortic Valve AoV Peak Zqcxeyne217.0cm/s Mitral Valve MV E Ytsbavgp98.4cm/sMV A Sfudxukv70.9cm/sE/A ratio1.2 TDI E/Lateral E'0.0E/Medial E'0.0 Tricuspid Valve TR Peak Ivdknjqq620je/sRAP [id number] Peak Gr.18mmHg [id number] LEFT VENTRICLE The left ventricle is normal size. There is normal left ventricular wall thickness. The left ventricular function is normal. The left ventricular ejection fraction is within the normal range. There is normal LV segmental wall motion. RIGHT VENTRICLE The right ventricle is normal size. ATRIA The left atrium size is normal. The right atrium size is normal. The interatrial septum is intact with no evidence for an atrial septal defect. AORTIC VALVE The aortic valve is normal in structure. MITRAL VALVE The mitral valve is normal in structure. TRICUSPID VALVE The tricuspid valve is normal in structure. There is trace tricuspid regurgitation. PULMONIC VALVE The pulmonary valve is normal in structure. GREAT VESSELS The aortic root is normal in size. PERICARDIAL EFFUSION There is no pericardial effusion. <Conclusion> The left ventricle is normal size. There is normal left ventricular wall thickness. The left ventricular function is normal.
== END 2017-07-02 15:34 | disposition home or self-care (01) ==
LOC: ED 19:49 → INTOOBSV 07-02 00:03 → ERH 07-02 00:03 → 3RSO 07-02 01:11
PROVIDERS: ADMIT Internal Medicine; ATTEND Internal Medicine
DX: R07.89 Other chest pain (principal); R06.02 Shortness of breath; F14.10 Cocaine abuse, uncomplicated; F11.10 Opioid abuse, uncomplicated; F17.210 Nicotine dependence, cigarettes, uncomplicated; Z86.79 Personal history of other diseases of the circulatory system; Z86.19 Personal history of other infectious and parasitic diseases
CPT/HCPCS: 36415; 71275; 80053; 80074; 80320; 80324; 80345; 80346; 80349; 80353; 80358; 80361; 81001; 82550; 83615; 83735; 83880; 83992; 84100; 84484; 85025; 85378; 85610; 85651; 85730; 86140; 87040; 87389; 93005; 93306; 96374; 96375; 96376; 99283; G0378; J2060; J3411; J7040; J7120; Q9967

== ENCOUNTER 2018-09-23 07:42 | Emergency (ER) | payer MEDICAID ==
[2018-09-23 07:46] VITALS: BMI 25.8
[2018-09-23] MEDS ORDERED: Amoxicillin-Clav 875-125 mg Tab PO STA (07:54)
--- NOTE | 2018-09-23 07:55 | ED PDOC ---
Arrival/HPI - General Chief Complaint: Dental Pain Time Seen by Provider: 09/23/18 07:45 Historian: Patient - History of Present Illness Narrative History of Present Illness (Text): 09/23/18 07:53 A 43 year old male, whose past medical history includes endocarditis, presents to the emergency department with a complaint of left upper tooth ache. The patient reports that his tooth cracked six months ago and an abscess has been developing in the area. Patient notes that the pain worsened today. He denies taking any antibiotics for the abscess. The patient denies fevers, chills, headache, dizziness, chest pain, shortness of breath, dyspnea on exertion, cough, abdominal pain, nausea, vomiting, diarrhea, back pain, neck pain, urinary/bowel changes, or any other complaint. PMD: Dr. Apple Almendarez Time/Duration: Other (Today) Symptom Onset: Gradual Symptom Course: Unchanged Activities at Onset: Rest, Light Context: Home Past Medical History - Provider Review Nursing Documentation Reviewed: Yes - Infectious Disease Hx of Infectious Diseases: None - Tetanus Immunization Tetanus Immunization: Unknown - Cardiac Hx Cardiac Disorders: Yes Other/Comment: hx of endocarditis - Pulmonary Hx Respiratory Disorders: No - Neurological Hx Neurological Disorder: No - HEENT Hx HEENT Disorder: No - Renal Hx Renal Disorder: No - Endocrine/Metabolic Hx Endocrine Disorders: No - Hematological/Oncological Hx Blood Disorders: No - Integumentary Hx Dermatological Disorder: No - Musculoskeletal/Rheumatological Hx Musculoskeletal Disorders: No Hx Falls: No (pt denied) - Gastrointestinal Hx Gastrointestinal Disorders: No - Genitourinary/Gynecological Hx Genitourinary Disorders: No Hx Sexually Transmitted Diseases: No - Psychiatric Hx Psychophysiologic Disorder: Yes Hx Bipolar Disorder: Yes Hx Substance Use: Yes - Surgical History Hx Mastectomy: No - Anesthesia Hx Anesthesia: No Family/Social History - Physician Review Nursing Documentation Reviewed: Yes Family/Social History: No Known Family HX Smoking Status: Heavy Smoker > 10 Cigarettes Daily Hx Alcohol Use: Yes Hx Substance Use: Yes Substance used: heroin, cocaine iv Allergies/Home Meds Allergies/Adverse Reactions: Allergies No Known Allergies Allergy (Verified 08/22/18 22:33) Review of Systems - Physician Review All systems were reviewed & negative as marked: Yes - Review of Systems Constitutional: absent: Fevers ENT: Other (Left upper tooth ache) Respiratory: absent: SOB, Cough Cardiovascular: absent: Chest Pain, DEL CID Gastrointestinal: absent: Abdominal Pain, Stool Changes, Diarrhea, Nausea, Vomiting Genitourinary Male: absent: Other Musculoskeletal: absent: Back Pain, Neck Pain Neurological: absent: Headache, Dizziness Physical Exam Vital Signs Reviewed: Yes Temperature: Afebrile Blood Pressure: Normal Pulse: Regular Respiratory Rate: Normal Appearance: Positive for: Well-Appearing, Non-Toxic, Comfortable Pain Distress: None Mental Status: Positive for: Alert and Oriented X 3 - Systems Exam Mouth: Present: Moist Mucous Membranes, Normal Tounge. No: Drooling, Trismus, Normal Teeth (no redness left upper tooth #10 (lateral incisor) but patient says he has tenderness; no abscess; no pus ) Pharnyx: Present: Normal. No: ERYTHEMA, EXUDATE, TONSILS ENLARGED, Peritonsilar Swelling, Uvular Deviation, Muffled/Hoarse Voice, Strider Medical Decision Making ED Course and Treatment: 09/23/18 08:02 Impression: A 43 year old male presents to the emergency department with a complaint of left upper tooth ache. Differential Diagnosis included but are not limited to: dental amy, low suspicion for abscess. Plan: -- Augmentin and Motrin -- Reassess and disposition Prior Visits: Notes and results from previous visits were reviewed. Progress Notes: Patient improved after motrin but is exhibiting manipulative behavior for opiates. I reviewed his pain medication from previous visits and there is concern for opiate dependence. I tried his pain appropriately for his medical condition diagnosis. MIYA Ferrell arranged for his antibiotics with Meds to beds program. We directed him with a list of homeless shelters if needed. We directed him to clinics he can go to for his dental care. He will f/u with the clinic and his PMD Dr. Brunner. - Scribe Statement The provider has reviewed the documentation as recorded by the Chandra Oh Provider Scribe Attestation: All medical record entries made by the Scribe were at my direction and personally dictated by me. I have reviewed the chart and agree that the record accurately reflects my personal performance of the history, physical exam, medical decision making, and the department course for this patient. I have also personally directed, reviewed, and agree with the discharge instructions and disposition. Disposition/Present on Arrival - Present on Arrival Any Indicators Present on Arrival: No History of DVT/PE: No History of Uncontrolled Diabetes: No Urinary Catheter: No History of Decub. Ulcer: No History Surgical Site Infection Following: None - Disposition Have Diagnosis and Disposition been Completed?: Yes Diagnosis: Dental caries Disposition: HOME/ ROUTINE Disposition Time: 08:06 Patient Plan: Discharge Condition: IMPROVED Discharge Instructions (ExitCare): Tooth Decay, Adult (DC) Additional Instructions: RHIANNON RADER, thank you for letting us take care of you today. Your provider was Alex Mondragon DO and you were treated for Dental Pain r/o Abscess. The emergency medical care you received today was directed at your acute symptoms. If you were prescribed any medication, please fill it and take as directed. It may take several days for your symptoms to resolve. Return to the Emergency Department if your symptoms worsen, do not improve, or if you have any other problems. [facility] - [address] [place] [address]. Call to make appoint ment [phone] Please contact your doctor or call one of the physicians/clinics you have been referred to that are listed on the Patient Visit Information form that is included in your discharge packet. Bring any paperwork you were given at discharge with you along with any medications you are taking to your follow up visit. Our treatment cannot replace ongoing medical care by a primary care karthikeyan cheung outside of the emergency department. Thank you for allowing the [facility] team to be part of your care today. If you had an X-Ray or CT scan: A Radiologist will review the ED reading if any change in treatment is needed we will contact you. If you had a blood, urine, or wound culture: It will take several days for the results, if any change in treatment is needed we will contact you. If you had an STI test: It will take 48 hours for the results. Please call after 1 week if you have not heard back. Prescriptions: Amoxicillin/Clavulanate [Augmentin 875 MG-125 MG] 1 tab PO BID #14 tab Ibuprofen [Motrin] 600 mg PO Q6 PRN #30 tab PRN Reason: Pain, Moderate (4-7) Referrals: Max Almendarez MD [Staff Provider] - Follow up with primary Forms: [employer] ([employer]), WORK NOTE
[2018-09-23 08:14] VITALS: RESP 18; TEMP 98.1
[2018-09-23 09:35] VITALS: BP 137/80; PULSE 75; O2SAT 98
== END 2018-09-23 11:05 | disposition home or self-care (01) ==
LOC: ED 07:42
DX: K02.9 Dental caries, unspecified (principal)